=== PATIENT | male | born 1965 | race Caucasian/White ===

== ENCOUNTER 2023-01-01 04:47 | Observation (INO) ==
[2023-01-01 05:24] LABS: Urine Appearance Clear; Urine Bilirubin Negative (Negative); Urine Blood Negative (Negative); Urine Color Yellow; Urine Glucose Negative (Negative); Urine Ketones Negative (Negative); Urine Nitrite Negative (Negative); Urine Protein Negative (Negative); Urine Specific Gravity 1.024 (1.002-1.030); Urine Urobilinogen Negative (Negative)
[2023-01-01 05:41] LABS: ABS Basophils 0.1 10^3/uL (0.0-0.1); ABS Monocytes 1.1 10^3/uL (0.0-1.1); ABS Neutrophils 10.5 10^3/uL (1.5-7.6); ABS Nucleated RBC 0.02 10^3/ul; Eosinophil % 0.1 %; Hematocrit 40.5 % (38-53); Hemoglobin 14.2 g/dL (13.2-16.3); Lymphocyte % 8.1 %; Mean Corpuscular Hemoglobin 30.8 pg (27-33); Mean Corpuscular Volume 88.1 fL (80-97); Mean Platelet Volume 7.9 fL (7.5-11.2); Nucleated Red Blood Cells % 0.2 /100 WBC (0.0-0.4); Platelet Count 216 10^3/uL (150-450); Red Cell Distribution Width 13.5 % (12-17); White Blood Count 12.7 10^3/uL (3.6-10.2)
[2023-01-01] MEDS ORDERED: Morphine 2 MG/ML SYRINGE IV PRN (05:42)
[2023-01-01 06:02] LABS: Albumin/Globulin Ratio 1.5 (1-3); Calcium 8.5 mg/dL (8.6-10.3); Creatinine, Serum 1.58 mg/dL (0.67-1.17); Globulin 2.6 g/dL (2-4); Potassium 3.6 mmol/L (3.5-5.0); Total Bilirubin 0.6 mg/dL (0.2-1.0); Total Protein 6.6 g/dL (6.4-8.9); eGFR CKD-EPI 50.4 (>60)
[2023-01-01] MEDS ORDERED: Ondansetron 4 mg VIAL 2 MG/ML 2 ml VIAL IV PRN (06:22)
[2023-01-01 07:03] LABS: INR 1.12 (0.88-1.18)
[2023-01-01] MEDS ORDERED: cefTRIAXone 2 gm/50 mL D5W 2 GM/50 ML BAG IV ONE (10:42)
[2023-01-01] MEDS ORDERED: Lactated Ringers 1000 ml BAG 1,000 ML IV SCH (11:00)
[2023-01-01] MEDS ORDERED: Midazolam 2 mg/2 ml VIAL 1 mg/ml 2 ml VIAL (2 mg) ONE (13:07)
[2023-01-01] MEDS ORDERED: fentaNYL 100 mcg/2 ml 50 MCG/ML VIAL ONE (13:07)
[2023-01-01] MEDS ORDERED: Iohexol 180 (CONTRAST) 10 ML SDV IV ONE (13:13)
[2023-01-01] MEDS ORDERED: Propofol 10 MG/ML 20 ML BTL ONE ×2 (13:23→13:41)
[2023-01-01] MEDS ORDERED: Lidocaine 2% PF 5 ML VIAL ONE (13:23)
[2023-01-01] MEDS ORDERED: Ondansetron 4 mg VIAL 2 MG/ML 2 ml VIAL ONE (13:35)
[2023-01-01] MEDS ORDERED: Dexamethasone IV 4 MG/ML VIAL 1 ml VIAL ONE (13:35)
[2023-01-01] MEDS ORDERED: Metoprolol Tartrate 5 mg VIAL 5 ml VIAL (1 mg/ml) IV PRN (13:56)
[2023-01-01 16:29] VITALS: BP 149/81
== END 2023-01-01 17:00 | disposition home or self-care (01) ==
LOC: ED 04:47 → SUATTDRO 05:00 → INTOOBSV 05:00 → EDHOLD 05:00 → MED 07:52
PROVIDERS: ADMIT Hospitalist; ATTEND Internal Medicine